=== PATIENT | female | born 1955 | race Caucasian/White ===

== ENCOUNTER 2016-12-22 14:35 | Emergency (ER) | payer MEDICARE, OTHER ==
--- NOTE | ~2016-12-22 | CR126 ---
[facility]. [facility] A Service of [facility] & [facility] RADIOLOGY TEXT RESULTS PATIENT: KATERIN LOCKE LOCATION: SED : 53 UNIT #: [id number] AGE: [address]: Mary Porter SEX: F ORDER DR: [id number] [address] [address] [id number] E MR#: [id number] Acc #: [id number] NAME: KATERIN LOCKE. : 1955 SEX: F STUDY DATE/TIME: 12/22/2016 14:51 UNIT: SED ROOM: STUDY DESCRIPTION: CR Foot Complete Min 3 View Lt Attending Physician: Mary Porter Pa-C Ordering Physician: Physician Non-Staff Primary Care Physician: Baltazar Garcia M.D. MEDICAL IMAGING REPORT This report is preliminary unless electronic signature is present. EXAM Left foot 3 views 12/22/2016 HISTORY Foot pain for 2 days after fall. FINDINGS 3 views left foot demonstrate normal bone alignment. No fracture, joint space narrowing or dislocation. Incidental focal benign-appearing sclerosis in the fourth metatarsal neck. IMPRESSION Negative. Dictated by... Bharath Leggett M.D. THIS IS AN ELECTRONICALLY VERIFIED REPORT Bharath Leggett M.D. at 12/22/2016 10:29 PM RAULITO/xuan TD: 12/22/2016 17:43 JOB #: [id number] MEDICAL IMAGING REPORT Page 1 of 1
--- NOTE | ~2016-12-22 | CR181 ---
[facility]. [facility] A Service of [facility] & [facility] RADIOLOGY TEXT RESULTS PATIENT: KATERIN LOCKE LOCATION: SED : 53 UNIT #: [id number] AGE: [address]: Mary Porter SEX: F ORDER DR: [id number] [address] [address] [id number] E MR#: [id number] Acc #: [id number] NAME: KATERIN LOCKE. : 1955 SEX: F STUDY DATE/TIME: 12/22/2016 14:51 UNIT: SED ROOM: STUDY DESCRIPTION: CR Lumbar Spine 2 or 3 Views Attending Physician: Mary Porter Pa-C Ordering Physician: Kylee Not Listed Primary Care Physician: Baltazar Garcia M.D. MEDICAL IMAGING REPORT This report is preliminary unless electronic signature is present. EXAM Lumbar spine 3 views. HISTORY Back pain for 2 days after fall. FINDINGS 3 views lumbar spine demonstrate mild left lumbar curve. No fracture, disc space narrowing, or subluxation. Minimal hypertrophic changes in the lower lumbar spine. IMPRESSION 1. No acute findings. 2. No fracture or subluxation. 3. Mild left lumbar curve. Dictated by... Bharath Leggett M.D. THIS IS AN ELECTRONICALLY VERIFIED REPORT Bharath Leggett M.D. at 12/22/2016 10:29 PM RAULITO/annette TD: 12/22/2016 17:50 JOB #: [id number] MEDICAL IMAGING REPORT Page 1 of 1
--- NOTE | ~2016-12-22 | CR127 ---
[facility]. [facility] A Service of [facility] & [facility] RADIOLOGY TEXT RESULTS PATIENT: KATERIN LOCKE LOCATION: SED : 53 UNIT #: [id number] AGE: [address]: Mary Porter SEX: F ORDER DR: [id number] [address] [address] [id number] E MR#: [id number] Acc #: [id number] NAME: KATERIN LOCKE. : 1955 SEX: F STUDY DATE/TIME: 12/22/2016 14:51 UNIT: SED ROOM: STUDY DESCRIPTION: CR Foot Complete Min 3 View Rt Attending Physician: Mary Porter Pa-C Ordering Physician: Physician Non-Staff Primary Care Physician: Baltazar Garcia M.D. MEDICAL IMAGING REPORT This report is preliminary unless electronic signature is present. EXAM Right foot 3 views 12/22/2016 HISTORY Foot pain after fall 2 days ago. Injury. FINDINGS 3 views of the right foot demonstrate mild degenerative changes at the first MTP joint. Satisfactory bone alignment. No fracture, or dislocation. Mild benign-appearing sclerosis in the second metatarsal neck. IMPRESSION No acute findings. Dictated by... Bharath Leggett M.D. THIS IS AN ELECTRONICALLY VERIFIED REPORT Bharath Leggett M.D. at 12/22/2016 10:29 PM RAULITO/xuan TD: 12/22/2016 17:56 JOB #: [id number] MEDICAL IMAGING REPORT Page 1 of 1
--- NOTE | ~2016-12-22 | CR20 ---
[facility]. [facility] A Service of [facility] & [facility] RADIOLOGY TEXT RESULTS PATIENT: KATERIN LOCKE LOCATION: SED : 53 UNIT #: [id number] AGE: [address]: Mary Porter SEX: F ORDER DR: [id number] [address] [address] [id number] E MR#: [id number] Acc #: [id number] NAME: KATERIN LOCKE. : 1955 SEX: F STUDY DATE/TIME: 12/22/2016 14:51 UNIT: SED ROOM: STUDY DESCRIPTION: CR Ankle Min 3 Views Lt Attending Physician: Mary Porter Pa-C Ordering Physician: Physician Non-Staff Primary Care Physician: Baltazar Garcia M.D. MEDICAL IMAGING REPORT This report is preliminary unless electronic signature is present. EXAM Left ankle 3 views 12/22/2016 HISTORY Ankle pain after fall 2 days ago. FINDINGS AP, lateral, and oblique projections of the ankle show satisfactory integrity of the joint mortise with a smooth articular surface. There is no identifiable fracture, dislocation, or radiopaque foreign body. IMPRESSION Normal ankle. Dictated by... Bharath Leggett M.D. THIS IS AN ELECTRONICALLY VERIFIED REPORT Bharath Leggett M.D. at 12/22/2016 10:29 PM RAULITO/xuan TD: 12/22/2016 17:38 JOB #: [id number] MEDICAL IMAGING REPORT Page 1 of 1
[~2016-12-22 14:35] MED LIST: ADVAIR 2501 DISK W/D PO; ALBUTEROL MININEB NEB; ALBUTEROL17 GM; ALBUTEROL17 GM INH; AMOXICILLIN PO; ANTIVERT PO; CALTRATE PLUS T1 TAB PO; CLIMARA1 PATCH.WK TOP; DESYREL100 MG DOB; DOXYCYCLINE PO; FLEXERIL PO; FLEXERIL10 MG PO; FLONASE16 GM; FOSAMAX70 MG PO; HYCODAN60 ML 5MG/; HYCODAN60 ML 5MG/ PO; HYDROCHLOROTHIA25 MG PO; HYDROCODON-ACE1 EAC1 PO; IBUPROFEN PO; IBUPROFEN600 MG PO; K-DUR20 ME2 PO; LODINE XL PO; LOMOTIL TABLET1 TAB PO; MOTRIN600 MG PO; MUCINEX DM TABL1 BOX; NAPROSYN-EC500 M1 PO; NAPROXEN PO; NEURONTIN PO; NEURONTIN300 MG PO; NEXIUM PO; OMEPRAZOLE20 M2 PO; PAXIL PO; PHENERGAN W/CO120 ML PO; PRAVACHOL20 MG PO; PRAVASTATIN SOD20 MG PO; PREDNISONE PO; PREMARIN PO; PRILOSEC PO; PRILOSEC40 MG PO; PROAIR HFA8.5 GM IH; PROAIR HFA8.5 GM INH; ROBITUSSIN AC PO; ROBITUSSIN S/F118 ML PO; SYMBICORT INH; TYLOX 5/500 CAP1 CAP PO; XANAX0.5 MG PO; ZANTAC PO; ZITHROMAX PO; ZOFRAN ODT4 MG/UDTAB PO; [UNRECOGNIZED DRUG - OTHER]; [UNRECOGNIZED DRUG - OTHER]; [UNRECOGNIZED DRUG - OTHER] PO
== END 2016-12-22 16:40 | disposition home or self-care (01) ==
LOC: SED 14:35
DX: S93.402A Sprain of unspecified ligament of left ankle, initial encounter (principal); S33.5XXA Sprain of ligaments of lumbar spine, initial encounter; S90.32XA Contusion of left foot, initial encounter; J44.9 Chronic obstructive pulmonary disease, unspecified; F41.9 Anxiety disorder, unspecified; F17.210 Nicotine dependence, cigarettes, uncomplicated; X50.1XXA Overexertion from prolonged static or awkward postures, initial encounter; Y93.89 Activity, other specified; Y92.009 Unspecified place in unspecified non-institutional (private) residence as the place of occurrence of the external cause
CPT/HCPCS: 29540; 72100; 73610; 73630; 99284

== ENCOUNTER → 2017-01-04 | Outpatient (CLI) | payer MEDICARE, OTHER ==
--- NOTE | ~2017-01-04 | CT71 ---
[facility] A Service [facility] RADIOLOGY TEXT RESULTS PATIENT: KATERIN LOCKE LOCATION: [facility] : 53 UNIT #: [id number] AGE: [address]: Baltazar Garcia MD SEX: F ORDER DR: [id number] [place] [id number] O MR#: [id number] Acc #: [id number] NAME: KATERIN LOCKE. : 1955 SEX: F STUDY DATE/TIME: 01/04/2017 14:20 UNIT: [facility] ROOM: STUDY DESCRIPTION: CT Head Wo Contrast Attending Physician: Baltazar Garcia M.D. Referring Physician: Baltazar Garcia M.D. Ordering Physician: Baltazar Garcia M.D. Primary Care Physician: Baltazar Garcia M.D. MEDICAL IMAGING REPORT This report is preliminary unless electronic signature is present. EXAM CT head. DATE OF EXAM 01/04/2017 HISTORY Closed head injury. Fall out of bed. Headaches 4-5 days. Increased blood pressure 3 days ago. Possibly hit head, does not remember. TECHNIQUE CT head performed skull base through vertex without intravenous contrast. This CT exam was performed with one or more of the following radiation dose reduction techniques: automatic exposure control, adjustment of mA and/or kV according to patient size, and iterative reconstruction. COMPARISON 08/01/2016. FINDINGS No hemorrhage. No indication of acute cortical ischemia. No intra or extraaxial mass effect. Basal ganglia intact. Ventricles, cisterns and sulci normal in size and contour. Intraorbital soft tissues unremarkable. Visualized paranasal sinuses and mastoid air cells clear. No fracture. IMPRESSION 1. Normal CT head. If patient has ongoing neurologic symptoms, consider follow-up imaging. [facility] A Service [facility] RADIOLOGY TEXT RESULTS PATIENT: KATERIN LOCKE LOCATION: [facility] : 53 UNIT #: [id number] AGE: [address]: Baltazar Garcia MD SEX: F ORDER DR: Dictated by... Gerber Brock M.D. THIS IS AN ELECTRONICALLY VERIFIED REPORT Gerber Brock M.D. at 01/05/2017 2:14 PM NICOLE/grazyna TD: 01/04/2017 15:45 JOB #: [id number] MEDICAL IMAGING REPORT Page 1 of 1
== END | disposition home or self-care (01) ==
LOC: SCT 14:12
DX: S09.90XA Unspecified injury of head, initial encounter (principal)
CPT/HCPCS: 70450